=== PATIENT | male | born 1970 | race Caucasian/White ===

== ENCOUNTER 2016-11-27 13:09 | Emergency (ER) | payer OTHER ==
[~2016-11-27] VITALS: Ht 167.6 cm; Wt 88.0 kg
[2016-11-27 13:14] VITALS: TEMP 37.3; Ht 167.6 cm; Wt 88.0 kg
[2016-11-27] MEDS ORDERED: DOXYCYCLINE HYCLATE 100 MG CAP PO STA (13:49)
[2016-11-27] MEDS ORDERED: ACETAMINOPHEN 500 MG TAB PO STA (13:49)
[2016-11-27] MEDS ORDERED: IBUPROFEN 200 MG TAB PO STA (13:49)
--- NOTE | 2016-11-27 13:51 | EMERGENCY ROOM VISIT NOTE ---
History Report prepared by Kenroy: Yao Andre Under the Supervision of: Dr. Carolina Jimenez M.D. First contact with patient: 13:32 Chief Complaint: ELBOW PAIN/INJURY Stated Complaint: PAIN/SWELLING IN LEFT ELBOW History of Present Illness The patient is a 46 year old male who presents to the Emergency Room with complaints of persistent left elbow pain and swelling starting 4 days ago. He can feel warmth in his elbow. He has worsening pain with movement. He is a diesel motor mechanic. The patient denies fevers, chills, or any other complaints. Source of History: patient Onset: 4 days ago Position: elbow (left) Quality: other (swelling) Timing: other (persistent) Modifying Factors (Worsening): movement Associated Symptoms: No chills, No fevers Review of Systems See HPI for pertinent positives & negatives. A total of 10 systems reviewed and were otherwise negative. Past Medical & Surgical Medical Problems: (1) No Known Active Medical Problems Family History Patient reports no known family medical history. Social History Smoking Status: Former Smoker Marital Status: Occupation Status: employed Current/Historical Medications Scheduled Doxycycline Monohydrate (Monodox), 100 MG PO BID Meloxicam (Mobic), 15 MG PO DAILY Venlafaxine Hcl (Venlafaxine Extended Rel), 75 MG PO BID Scheduled PRN Oxycodone/Acetaminophen 5MG/325MG (Percocet 5MG/325MG), 1-2 TABLETS PO Q4H PRN for Pain Allergies Coded Allergies: No Known Allergies (Unverified , 11/27/16) Physical Exam Vital Signs Date Time Temp Pulse Resp B/P Pulse Ox O2 Delivery O2 Flow Rate FiO2 11/27/16 15:29 64 16 126/75 96 11/27/16 13:14 37.3 98 17 126/81 95 Room Air Physical Exam CONSTITUTIONAL: Mild painful distress. HEENT: No icterus, moist mucous membranes NECK: No meningismus, trachea is midline. CARDIOVASCULAR: Regular rate, normal perfusion RESPIRATORY: Unlabored breathing. Clear to auscultation. GASTROINTESTINAL: Non-tender GENITOURINARY: No flank tenderness MUSCULOSKELETAL: Moderate erythema, warmth, and edema diffusely of lateral left elbow without lymphangitis. NEUROLOGIC: No acute gross focal deficits. PSYCHIATRIC: Normal affect SKIN: Normal for ethnicity. Medical Decision & Procedures Medications Administered Medications (Trade) Dose Ordered Sig/Ton Route Start Time Stop Time Status Last Admin Dose Admin Daptomycin/Sodium Chloride (Cubicin IV/Nss 50ml) 60 ml @ 100 mls/hr NOW IV 11/27/16 14:00 11/27/16 15:45 DC 11/27/16 14:39 100 MLS/HR Doxycycline Hyclate (Vibramycin Cap) 100 mg NOW STAT PO 11/27/16 13:49 11/27/16 13:52 DC 11/27/16 14:16 100 MG Acetaminophen (Tylenol Tab) 1,000 mg NOW STAT PO 11/27/16 13:49 11/27/16 13:52 DC 11/27/16 14:15 1,000 MG Ibuprofen (Advil Tab) 400 mg NOW STAT PO 11/27/16 13:49 11/27/16 13:52 DC 11/27/16 14:16 400 MG ED Course 1332: Past medical records reviewed. The patient was evaluated in room C04. A complete history and physical examination was performed. 1349: Advil Tab 400 mg PO, Tylenol Tab 1000 mg PO, Vibramycin Cap 100 mg PO 1351: I discussed results and treatment plan with the patient. He verbalizes agreement and understanding. The patient will be discharged. 1400: Daptomycin 500 mg/Sodium Chloride 60 ml @ 100 mls/hr IV Medical Decision Differential diagnosis includes but is not limited to cellulitis, bursitis, septic joint. 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 He denies any systemic complaints such as fevers chills or myalgias. Exam consistent with cellulitis not bursitis at this time and joint infection is unlikely. Given dose of daptomycin up her prescription for doxycycline. Patient understands to leave 48-72 hours to assess for improvement on oral antibiotics and return for any systemic complaints or worsening signs of infection. Impression Primary Impression: Cellulitis Scribe Attestation The scribe's documentation has been prepared under my direction and personally reviewed by me in its entirety. I confirm that the note above accurately reflects all work, treatment, procedures, and medical decision making performed by me. Departure Information Dispostion Home / Self-Care Prescriptions Oxycodone/Acetaminophen 5MG/325MG (PERCOCET 5MG/325MG) Tab 1-2 TABLETS PO Q4H Y for Pain, #12 TAB Prov: Carolina Jimenez MD 11/27/16 Doxycycline Monohydrate (Monodox) 100 Mg Cap 100 MG PO BID for 10 Days, #20 CAP Prov: Carolina Jimenez MD 11/27/16 Referrals Venu Meza PA-C (PCP) Forms HOME CARE DOCUMENTATION FORM, IMPORTANT VISIT INFORMATION Patient Instructions Cellulitis - [facility], [facility] Problem Qualifiers Primary Impression: Cellulitis
[2016-11-27] MEDS ORDERED: OXYC-57 PO (13:53)
[2016-11-27] MEDS ORDERED: DOXY100C76 PO (13:53)
[2016-11-27] MEDS ORDERED: DAPTOmycin IV 500 MG in SODIUM CHLORIDE 0.9% 50ML 50 ML IV SCH (14:00)
[2016-11-27] MEDS ORDERED: MELO7.5T5 PO (14:19)
[2016-11-27] MEDS ORDERED: VENL75CA73 PO (14:19)
[2016-11-27 15:29] VITALS: BP 126/75; PULSE 64; O2SAT 96
== END 2016-11-27 15:30 | disposition home or self-care (01) ==
LOC: C.EDB 13:10 → C.EDC 15:30
DX: L03.90 Cellulitis, unspecified (principal); Z87.891 Personal history of nicotine dependence